=== PATIENT | male | born 1945 | race African-American/Black ===

== ENCOUNTER 2020-09-11 06:00 | Day surgery (SDC) | payer BC ==
[2020-09-08 18:22] VITALS: BMI 31.6
[2020-09-11] MEDS ORDERED: ceFAZolin 2 GRAM PREMIX BAG IVPB ONE (11:35)
[2020-09-11] MEDS ORDERED: BUPIVACAINE HCL/PF 0.5% (5MG/ML) 10 ML VIAL IJ ONE ×2 (11:35)
[2020-09-11] MEDS ORDERED: BACITRACIN 15 GM TUBE TOPICAL OINTMENT ONE (12:08)
[2020-09-11] MEDS ORDERED: LIDOCAINE HCL 1%, 10 MG/ML (20ML VIAL) ONE (12:08)
[2020-09-11] MEDS ORDERED: PROPOFOL 20 ML ONE ×2 (12:36)
[2020-09-11] MEDS ORDERED: SUCCINYLCHOLINE CHLORIDE 200 MG/10 ML SYRINGE ONE (12:36)
[2020-09-11] MEDS ORDERED: MIDAZOLAM HCL 2 MG/2 ML SINGLE DOSE VIAL ONE (12:36)
[2020-09-11] MEDS ORDERED: DEXAMETHASONE SOD PHOSPHATE 4 MG/1 ML VIAL ONE (12:49)
[2020-09-11] MEDS ORDERED: ceFAZolin SODIUM 1 GM VIAL ONE (12:49)
[2020-09-11] MEDS ORDERED: EPHEDRINE SULFATE/0.9% NACL/PF 50 MG/10 ML SYRINGE NR ONE (13:03)
[2020-09-11] MEDS ORDERED: GLYCOPYRROLATE 0.2 MG/1 ML VIAL ONE (13:08)
[2020-09-11] MEDS ORDERED: LACTATED RINGERS SOLUTION 1,000 ML IV SCH (13:15)
[2020-09-11] MEDS ORDERED: oxyCODONE HCL 5 MG TABLET PO PRN (13:15)
[2020-09-11] MEDS ORDERED: ONDANSETRON 4 MG/2 ML VIAL IVPUSH PRN (13:15)
[2020-09-11 16:43] VITALS: BP 145/76; PULSE 67; TEMP 97.4
== END 2020-09-11 16:20 | disposition home or self-care (01) ==
LOC: JASU-SURG 06:00
PROVIDERS: ATTEND Urology
PROC: 0VTTXZZ Resection of Prepuce, External Approach (ICD-10-PCS; principal; 2020-09-11 13:00)
DX: N47.1 Phimosis (principal)
CPT/HCPCS: 88304-TC; 94760